=== PATIENT | male | born 1960 | race Caucasian/White ===

== ENCOUNTER 2016-07-12 08:19 | Day surgery (SDC) | payer MEDICARE, MEDICAID ==
[~2016-07-12 08:19] MED LIST: ABILIFY10 M1 PO; ABILIFY5 M1 PO; ABILIFY5 MG PO; ACIDOPHILUS-PE1 EAC1 PO; ATIVAN0.5 MG PO; ATIVAN1 M2 PO; BACTRIM DS1 TAB PO; BENEFIBER1 PKT PO; CITRUCEL POWDE850 GM PO; CLARITIN10 M6 PO; CLARITIN10 MG PO; CLINDAMYCIN HC300 MG PO; COLACE100 M1 PO; COLACE100 MG PO; FLOMAX0.4 M1 PO; FLOMAX0.4 MG PO; HYDROCORTISONE30 G1 APL; IMODIUM A-D2 MG PO; LEXAPRO10 M2 PO; LEXAPRO10 MG PO; MILK OF MA400 MG/5 M PO; MILK OF MAGNESIA PO; MIRALAX17 G2 PO; MIRALAX17 GM PO; MUPIROCIN22 G2 TP; OMEPRAZOLE20 M2 PO; PEPCID20 MG PO; PREDNISONE20 MG PO; PRILOSEC20 M1 PO; TERAZOSIN1 MG PO; ULORIC40 MG PO; ULORIC40 MG/TAB PO; ZYLOPRIM300 MG PO
[2016-07-12 10:42] LABS: BASO % 0.3 % (0-2); EOS % 1.2 % (0-7); EOSINOPHIL ABSOLUTE COUNT 0.1 tho/cmm (0.0-0.7); HCT-HEMATOCRIT 41.1 % (36.0-53.5); HGB-HEMOGLOBIN 14.2 gm/dl (13.5-17.0); IMMATURE GRANULOCYTES ABSOLUTE 0.01 tho/cmm (0-0.03); IMMATURE GRANULOCYTES PERCENT 0.1 % (0-0.3); LYMPH % 23.4 % (20-45); LYMPH ABSOLUTE COUNT 1.8 tho/cmm (0.8-4.5); MCH (MEAN CORPUSCULAR HGB) 31.6 pg (28.0-32.0); MCHC MEAN CORPUSCULAR HGB CONC 34.5 % (32.0-36.0); MCV (MEAN CELL VOLUME) 91.3 fl (82.0-96.0); MONO % 5.1 % (0-12); MONOCYTE ABSOLUTE COUNT 0.4 tho/cmm (0.0-1.2); NEUTROPHIL ABSOLUTE COUNT 5.5 tho/cmm (1.6-8.0); NEUTROPHIL-AUTOMATED 5.5 tho/cmm (1.6-8.0); NEUTROPHILS % 69.9 % (40-80); PLATELET COUNT 263 tho/cmm (150-450); RED CELL DISTRIBUTION WIDTH 12.2 % (12.4-16.4); WHITE BLOOD COUNT 7.8 tho/cmm (4.0-10.0)
[2016-07-12 10:54] LABS: ANION GAP 13 mmol/L (0-20); BLOOD UREA NITROGEN 9 mg/dl (6-24); CARBON DIOXIDE-VENOUS 28 mmol/L (22-32); CHLORIDE 102 mmol/l (96-110); GLUCOSE 99 mg/dL (70-110); POTASSIUM 3.6 mmol/L (3.7-5.1); SODIUM 139 mmol/L (135-145); eGFR VALUE FOR BLACK >60 mL/Min
[2016-07-12 11:05] LABS: T4 (THYROXINE) 7.8 ug/dl (5.0-12.6)
[2016-07-12 11:08] LABS: TSH-THYROID STIMULATING HORM. 8.44 uIU/ml (0.40-3.80)
== END 2016-07-12 13:20 ==
LOC: SHSB 08:19 → ORW 10:04 → PACU 11:29 → SHSC 12:25
PROVIDERS: Anesthesiology; Family Medicine
PROC: 0HXHXZZ Transfer Right Upper Leg Skin, External Approach (ICD-10-PCS; principal; 2016-07-12)
DX: C43.71 Malignant melanoma of right lower limb, including hip (principal); F73 Profound intellectual disabilities; I10 Essential (primary) hypertension; M10.9 Gout, unspecified; F41.9 Anxiety disorder, unspecified; K21.9 Gastro-esophageal reflux disease without esophagitis; F32.9 Major depressive disorder, single episode, unspecified; Z79.899 Other long term (current) drug therapy; Z88.0 Allergy status to penicillin; Z88.8 Allergy status to other drugs, medicaments and biological substances; Z91.048 Other nonmedicinal substance allergy status; Z90.49 Acquired absence of other specified parts of digestive tract; Z98.890 Other specified postprocedural states
CPT/HCPCS: J0690